=== PATIENT | male | born 1955 | race Two or more races ===

== ENCOUNTER 2024-12-09 12:54 | Outpatient (AMB) | payer MEDICARE, MEDICAID, SELFPAY ==
--- NOTE | 2024-12-09 13:07 | ORTHONT_ITS ---
Vital signs 12/09/24 13:08 Height 1.7 m Height Method Stated Weight 113.426 kg Weight Measurement Method Standing Scale BMI 39.2 BP 83/54 L Blood Pressure Source Automatic Cuff Blood Pressure Location Left Upper Arm Position Sitting Respiration 18 Pulse 86 Pulse Source Monitor Temp 97.7 F Temp Source Temporal Artery Scan Pulse Oximetry (%) 93 L Oxygen Delivery Method Room Air Med/Allergies Allergies & Medications Allergies No Known Allergies Allergy (Verified 12/09/24 13:08) Medication Reconciliation naproxen 500 mg tablet 500 mg PO BID PRN Pain 04/22/23 [History Confirmed 12/09/24] meloxicam 7.5 mg tablet 7.5 mg PO BID #45 tabs 11/03/23 [Rx Confirmed 12/09/24] meloxicam 7.5 mg tablet 7.5 mg PO QDAY #45 tabs 02/02/24 [Rx Confirmed 12/09/24] Exam Exam Patient is in no acute distress and is cooperative with the examination today. Breathing is nonlabored. In no respiratory distress. Bilateral extremities were evaluated and demonstrates sensation intact to light touch. Palpable pedal pulses are present. No significant edema is present. Bilateral hips were examined. The patient has no pain with log roll of the hips. Internal rotation to 30 degrees and external rotation to 30 degrees is painless. Negative FADIR. The left knee was examined. The left knee is in varus alignment. Range of motion from 0-115 degrees. Knee is stable to varus and valgus as well as AP translation with <5mm. Patient has a negative McMurrays. There is no pain with patellofemoral compression and no crepitus noted. The knee is tender to palpation medially. The right knee was also examined. The right knee is in varus alignment. Range of motion from 0-120 degrees. Knee is stable to varus and valgus as well as AP translation with <5mm. Patient has a negative McMurrays. There is no pain with patellofemoral compression and no crepitus noted. The knee is tender to palpation medially. X-rays were personally reviewed by me today. This demonstrates bilateral knee osteoarthritis. There is significant obliteration of the medial joint space. There is varus arthritis Assessment and Plan Problem List (1) Bilateral knee pain: Status: Acute Plan: Patient is a 68-year-old male with likely bilateral knee osteoarthritis with bilateral knee pain. The knee pain is excruciating but it is not a good time for surgery at this time. Recommend knee cortisone injections as patient would like to proceed with conservative treatment at this time. The risks and benefits of the procedure were reviewed with the patient and patient gave verbal consent to continue with the procedure. Procedure: performed by Dr. Davis Using sterile technique the Bilateral knees were thoroughly prepped with alcohol, and approximately 1 cc of Kenalog 40 mg/mL and 4 cc of 1% lidocaine was injected into each knee without resistance into the medial tibial femoral joint space. The patient tolerated the procedure. (2) Arthritis of both knees: Status: Acute Advanced Care Planning Discussion Advance care planning discussed with:: patient Office Procedures GNS Level of Care Nursing/Assessment Patient Status: Established Patient Nursing Assessment/Reassesment: Medication Reconciliation, Update PMH in EMR and Vital Signs Coordination of Care: Complex Care and Chronic Disease 1-5, Education Complex Pt/Fam, Consent,records obtained, informed consent, Results/Orders obtained and Staff clarify orders Special Needs: Language special needs Established Patient Charge Established Patient Point Assignment: 95 Established Patient Point Charge: EP Level 3 (80-115) Surgical Proc/IM SQ injection Major Surgical Procedure: Yes (BILATERAL KNEE INJECTION) Medication Given Medication Given Medication Given: Yes Documented Dose Given: 8 Route: Infiitration Medication Given Medication Given Medication Given: Yes Documented Dose Given: 2 Route: Infiitration Office Meds Xylocaine 10 mg/mL (1 %) injection solution Performing Provider: Sujit Davis MD Performing Location: [facility] Administered by: Sujit Davis MD on 12/09/24 13:24 Dose Route Admin Location Dispensed Lot Number Expiration Date [facility] [employer] 40 mL Infiltration 40 mL [id number] 07/29/27 23960-590-03 [facility] triamcinolone acetonide 40 mg/mL suspension for injection Performing Provider: Sujit Davis MD Performing Location: [facility] Administered by: Sujit Davis MD on 12/09/24 13:24 Dose Route Admin Location Dispensed Lot Number Expiration Date [facility] [employer] 80 mg Infiltration 2 mL [id number] 04/28/26 8659-6017-80 [employer] [place] Intake Visit Data Collection New Patient or Established: Established Patient (seen at [facility] within 3 years) Reason for Visit:: BL KNEE INJ Seen by Clinical Staff ONLY (RN/MA): No 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 PCP or OBGYN visit in last 3 months: Yes Hx Now: No Do You Feel Safe at Home: Yes Authorities Contacted: N/A Questionairres Past Medical History Past Medical History Have you ever been diagnosed with any of the following: Neurological Problems Seizures: No Cardiology Problems Congestive Heart Failure: No Respiratory Problems Chronic Obstructive Pulmonary Disease (COPD): No Smoking: No Smoking Exposure: No Stomache/Intestinal Problems Hepatitis: No Obesity: Yes Genital/Urinary Problems Renal Disease: No Musculoskeletal Problems Arthritis: Yes (bilateral knees) Gout: Yes Endocrine Problems Diabetes Mellitus Type 1: No Diabetes Mellitus Type 2: No Other Problems Shingles: No Blood Transfusions: No Anesthesia Reactions: No MRSA: No Measles: Yes Cancer: No Subjective Visit Visit for: follow up visit and knee (BILATERAL) Immunization / Flu Flu Vaccine in the Last 12 Months: No Flu Vaccine Exclusion Criteria: No Exclusion Criteria History of Present Illness Chief complaint: bilateral knee pain Patient is a 68-year-old male with over 1 year history of bilateral knee pain. He went to see his primary care provider and was told he had osteoarthritis. Patient Has tried indomethacin as well as meloxicam previously. He has had an injection which lasted 6 weeks. The right knee pain is worse than the left. Pain Pain level (0-10): 6 Pain duration: WITH MOVEMENT Pain location: inside (medial) Pain quality: sharp and aching Pain timing: night, increases with activity and stairs Associated signs & symptoms: weakness Ambulatory data Ambulatory device: cane Treatments Improvement with previous injections: Yes Improvement with PT: No Improvement with NSAIDS: no Review of Systems Review of Systems: All systems negative unless otherwise noted in HPI.
[2024-12-09 13:08] VITALS: BP 83/54; PULSE 86; RESP 18; TEMP 36.5; O2SAT 93; BMI 39.2
== END 2024-12-09 13:28 | disposition home or self-care (01) ==
PROVIDERS: PCP Family Medicine; Referring Provider Family Medicine; Supervising Provider Orthopaedic Surgery Adult Reconstructive Orthopaedic Surgery; Visit Provider Orthopaedic Surgery Adult Reconstructive Orthopaedic Surgery
DX: M25.562 Pain in left knee (principal); M25.561 Pain in right knee; M17.0 Bilateral primary osteoarthritis of knee
CPT/HCPCS: 20610; 99213; J3301; J3490; G0463

== ENCOUNTER 2025-03-16 08:07 | Outpatient (AMB) | payer MEDICARE, MEDICAID, SELFPAY ==
[2025-03-16 08:24] VITALS: BP 166/91; PULSE 67; RESP 18; TEMP 36.3; O2SAT 96; BMI 37.9
--- NOTE | 2025-03-16 08:24 | PD.ORTHCLVIS ---
Vital signs 03/16/25 08:24 Height 1.7 m Height Method Stated Weight 109.543 kg Weight Measurement Method Standing Scale BMI 37.9 BP 166/91 H Blood Pressure Source Automatic Cuff Blood Pressure Location Right Upper Arm Position Sitting Respiration 18 Pulse 67 Pulse Source Monitor Temp 97.3 F Temp Source Temporal Artery Scan Pulse Oximetry (%) 96 Oxygen Delivery Method Room Air Med/Allergies Allergies & Medications Allergies No Known Allergies Allergy (Verified 03/16/25 08:31) Medication Reconciliation naproxen 500 mg tablet 500 mg PO BID PRN Pain 04/22/23 [History Confirmed 03/16/25] meloxicam 7.5 mg tablet 7.5 mg PO BID #45 tabs 11/03/23 [Rx Confirmed 03/16/25] meloxicam 7.5 mg tablet 7.5 mg PO QDAY #45 tabs 02/02/24 [Rx Confirmed 03/16/25] Exam Exam Patient is in no acute distress and is cooperative with the examination today. Breathing is nonlabored. In no respiratory distress. Bilateral extremities were evaluated and demonstrates sensation intact to light touch. Palpable pedal pulses are present. No significant edema is present. Bilateral hips were examined. The patient has no pain with log roll of the hips. Internal rotation to 30 degrees and external rotation to 30 degrees is painless. Negative FADIR. The left knee was examined. The left knee is in varus alignment. Range of motion from 0-115 degrees. Knee is stable to varus and valgus as well as AP translation with <5mm. Patient has a negative McMurrays. There is no pain with patellofemoral compression and no crepitus noted. The knee is tender to palpation medially. The right knee was also examined. The right knee is in varus alignment. Range of motion from 0-120 degrees. Knee is stable to varus and valgus as well as AP translation with <5mm. Patient has a negative McMurrays. There is no pain with patellofemoral compression and no crepitus noted. The knee is tender to palpation medially. X-rays were personally reviewed by me today. This demonstrates bilateral knee osteoarthritis. There is significant obliteration of the medial joint space. There is varus arthritis Assessment and Plan Problem List (1) Bilateral knee pain: Status: Acute Plan: Patient is a 68-year-old male with likely bilateral knee osteoarthritis with bilateral knee pain. The knee pain is excruciating but it is not a good time for surgery at this time. Recommend knee cortisone injections as patient would like to proceed with conservative treatment at this time. The risks and benefits of the procedure were reviewed with the patient and patient gave verbal consent to continue with the procedure. Procedure: performed by Dr. Davis Using sterile technique the Bilateral knees were thoroughly prepped with alcohol, and approximately 1 cc of Kenalog 40 mg/mL and 4 cc of 1% lidocaine was injected into each knee without resistance into the medial tibial femoral joint space. The patient tolerated the procedure. (2) Arthritis of both knees: Status: Acute Advanced Care Planning Discussion Advance care planning discussed with:: patient Office Procedures GNS Level of Care Nursing/Assessment Patient Status: Established Patient Nursing Assessment/Reassesment: Medication Reconciliation, Update PMH in EMR and Vital Signs Coordination of Care: Complex Care and Chronic Disease 1-5, Education Complex Pt/Fam, Consent,records obtained, informed consent, Results/Orders obtained and Staff clarify orders Special Needs: Language special needs Established Patient Charge Established Patient Point Assignment: 95 Established Patient Point Charge: EP Level 3 (80-115) Medication Given Medication Given Medication Given: Yes Documented Dose Given: 4 Route: Infiitration Medication Given Medication Given Medication Given: Yes Documented Dose Given: 1 Route: Infiitration Office Meds Xylocaine 10 mg/mL (1 %) injection solution Performing Provider: Sujit Davis MD Performing Location: [facility] Administered by: Sujit Davis MD on 03/16/25 08:33 Dose Route Admin Location Dispensed Lot Number Expiration Date [facility] [employer] 40 mL Infiltration 40 mL [id number] 05/29/28 76543-080-55 [facility] triamcinolone acetonide 40 mg/mL suspension for injection Performing Provider: Sujit Davis MD Performing Location: [facility] Administered by: Sujit Davis MD on 03/16/25 08:33 Dose Route Admin Location Dispensed Lot Number Expiration Date 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 PCP or OBGYN visit in last 3 months: Yes Hx Now: No Do You Feel Safe at Home: Yes Authorities Contacted: N/A Questionairres Past Medical History Past Medical History Have you ever been diagnosed with any of the following: Neurological Problems Seizures: No Cardiology Problems Congestive Heart Failure: No Respiratory Problems Chronic Obstructive Pulmonary Disease (COPD): No Smoking: No Smoking Exposure: No Stomache/Intestinal Problems Hepatitis: No Obesity: Yes Genital/Urinary Problems Renal Disease: No Musculoskeletal Problems Arthritis: Yes (bilateral knees) Gout: Yes Endocrine Problems Diabetes Mellitus Type 1: No Diabetes Mellitus Type 2: No Other Problems Shingles: No Blood Transfusions: No Anesthesia Reactions: No MRSA: No Measles: Yes Cancer: No Subjective Visit Visit for: follow up visit, knee and injections Immunization / Flu Flu Vaccine in the Last 12 Months: No Flu Vaccine Exclusion Criteria: No Exclusion Criteria History of Present Illness Chief complaint: knee injections Patient is a 68-year-old male with over 1 year history of bilateral knee pain. He went to see his primary care provider and was told he had osteoarthritis. Patient Has tried indomethacin as well as meloxicam previously. He has done well with injections in the past and wants new ones today, The right knee pain is worse than the left. Pain Pain level (0-10): 8 Pain duration: all day Pain location: anterior and posterior Pain quality: sharp, dull, aching and burning Pain timing: increases with activity Associated signs & symptoms: numbness Ambulatory data Ambulatory device: cane Treatments Improvement with previous injections: Yes Improvement with PT: No Improvement with NSAIDS: no Review of Systems Review of Systems: All systems negative unless otherwise noted in HPI.
== END 2025-03-16 08:52 | disposition home or self-care (01) ==
LOC: HODSRG 08:07
PROVIDERS: PCP Family Medicine; Referring Provider Family Medicine; Supervising Provider Orthopaedic Surgery Adult Reconstructive Orthopaedic Surgery; Visit Provider Orthopaedic Surgery Adult Reconstructive Orthopaedic Surgery
DX: M25.561 Pain in right knee (principal); M25.562 Pain in left knee; M17.0 Bilateral primary osteoarthritis of knee
CPT/HCPCS: 20610; 99213; J3301; J3490; G0463

== ENCOUNTER 2025-07-11 13:34 | Outpatient (AMB) | payer MEDICARE, SELFPAY ==
--- NOTE | 2025-07-11 13:57 | PD.ORTHCLVIS ---
Vital signs 07/11/25 14:15 Height 1.7 m Height Method Stated Weight 113.937 kg Weight Measurement Method Standing Scale BMI 39.4 BP 150/83 H Blood Pressure Source Automatic Cuff Blood Pressure Location Left Upper Arm Position Sitting Respiration 18 Pulse 76 Pulse Source Monitor Temp 96.9 F Temp Source Temporal Artery Scan Pulse Oximetry (%) 94 L Oxygen Delivery Method Room Air Med/Allergies Allergies & Medications Allergies No Known Allergies Allergy (Verified 07/11/25 14:15) Medication Reconciliation naproxen 500 mg tablet 500 mg PO BID PRN Pain 04/22/23 [History Confirmed 07/11/25] meloxicam 7.5 mg tablet 7.5 mg PO QDAY #45 tabs 02/02/24 [Rx Confirmed 07/11/25] Exam Exam Patient is in no acute distress and is cooperative with the examination today. Breathing is nonlabored. In no respiratory distress. Bilateral extremities were evaluated and demonstrates sensation intact to light touch. Palpable pedal pulses are present. No significant edema is present. Bilateral hips were examined. The patient has no pain with log roll of the hips. Internal rotation to 30 degrees and external rotation to 30 degrees is painless. Negative FADIR. The left knee was examined. The left knee is in varus alignment. Range of motion from 0-115 degrees. Knee is stable to varus and valgus as well as AP translation with <5mm. Patient has a negative McMurrays. There is no pain with patellofemoral compression and no crepitus noted. The knee is tender to palpation medially. The right knee was also examined. The right knee is in varus alignment. Range of motion from 0-120 degrees. Knee is stable to varus and valgus as well as AP translation with <5mm. Patient has a negative McMurrays. There is no pain with patellofemoral compression and no crepitus noted. The knee is tender to palpation medially. X-rays were personally reviewed by me today. This demonstrates bilateral knee osteoarthritis. There is significant obliteration of the medial joint space. There is varus arthritis Assessment and Plan Problem List (1) Arthritis of both knees: Status: Acute (2) Bilateral knee pain: Status: Acute Plan: Patient is a 68-year-old male with likely bilateral knee osteoarthritis with bilateral knee pain. The knee pain is excruciating but it is not a good time for surgery at this time. Recommend knee cortisone injection as patient would like to proceed with conservative treatment at this time. The risks and benefits of the procedure were reviewed with the patient and patient gave verbal consent to continue with the procedure. Procedure: performed by Dr. Davis Using sterile technique the left knee was thoroughly prepped with alcohol, and approximately 1 cc of Depo-Medrol 80mg/mL and 4 cc of 0.2% ropivacaine was injected without resistance into the medial tibial femoral joint space. The patient tolerated the procedure. Recommend knee cortisone injection as patient would like to proceed with conservative treatment at this time. The risks and benefits of the procedure were reviewed with the patient and patient gave verbal consent to continue with the procedure. Procedure: performed by Dr. Davis Using sterile technique the Right knee was thoroughly prepped with alcohol, and approximately 1 cc of Depo-Medrol 80mg/mL and 4 cc of 0.2% ropivacaine was injected without resistance into the medial tibial femoral joint space. The patient tolerated the procedure. Advanced Care Planning Discussion Advance care planning discussed with:: patient Office Procedures GNS Level of Care Nursing/Assessment Patient Status: Established Patient Nursing Assessment/Reassesment: Medication Reconciliation, Update PMH in EMR and Vital Signs Coordination of Care: Complex Care and Chronic Disease 1-5, Education Complex Pt/Fam, Consent,records obtained, informed consent, Results/Orders obtained and Staff clarify orders Special Needs: Language special needs Established Patient Charge Established Patient Point Assignment: 95 Established Patient Point Charge: EP Level 3 (80-115) Surgical Proc/IM SQ injection Major Surgical Procedure: Yes (BILATERAL KNEE INJECTION) Medication Given Medication Given Medication Given: Yes Documented Dose Given: 1 Route: Infiitration Medication Given Medication Given Medication Given: Yes Documented Dose Given: 1 Route: Infiitration Medication Given Medication Given Medication Given: Yes Documented Dose Given: 4 Route: Infiitration Medication Given Medication Given Medication Given: Yes Documented Dose Given: 4 Route: Infiitration Office Meds methylprednisolone acetate 80 mg/mL suspension for injection Performing Provider: Sujit Davis MD Performing Location: [facility] Administered by: Sujit Davis MD on 07/11/25 14:31 Dose Route Admin Location Dispensed Lot Number Expiration Date [facility] [employer] 80 mg intra-articular 1 mL [id number] 04/28/27 [address]-9 [employer] methylprednisolone acetate 80 mg/mL suspension for injection Performing Provider: Sujit Davis MD Performing Location: [facility] Administered by: Sujit Davis MD on 07/11/25 14:31 Dose Route Admin Location Dispensed Lot Number Expiration Date [facility] [employer] 80 mg intra-articular 1 mL [id number] 04/28/27 [address]-7 [employer] ropivacaine (PF) 2 mg/mL (0.2 %) injection solution Performing Provider: Sujit aDvis MD Performing Location: [facility] Administered by: Sujit Davis MD on 07/11/25 14:31 Dose Route Admin Location Dispensed Lot Number Expiration Date [place] [employer] 20 mL Infiltration 20 mL [id number] 09/28/26 21376-417-50 [employer] ropivacaine (PF) 2 mg/mL (0.2 %) injection solution Performing Provider: Sujit Davis MD Performing Location: [facility] Administered by: Sujit Davis MD on 07/11/25 14:31 Dose Route Admin Location Dispensed Lot Number Expiration Date [facility] [employer] 20 mL Infiltration 20 mL [id number] 09/28/26 23768-542-53 [employer] [place] Intake Visit Data Collection New Patient or Established: Established Patient (seen at [facility] within 3 years) Reason for Visit:: 3MTH BL KNEE INJ FU Seen by Clinical Staff ONLY (RN/MA): No Verbal consent obtained for Telemed visit?: No 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 PCP or OBGYN visit in last 3 months: Yes Hx Now: No Do You Feel Safe at Home: Yes Authorities Contacted: N/A Questionairres Past Medical History Past Medical History Have you ever been diagnosed with any of the following: Neurological Problems Seizures: No Cardiology Problems Congestive Heart Failure: No Respiratory Problems Chronic Obstructive Pulmonary Disease (COPD): No Smoking: No Smoking Exposure: No Stomache/Intestinal Problems Hepatitis: No Obesity: Yes Genital/Urinary Problems Renal Disease: No Musculoskeletal Problems Arthritis: Yes (bilateral knees) Gout: Yes Endocrine Problems Diabetes Mellitus Type 1: No Diabetes Mellitus Type 2: No Other Problems Shingles: No Blood Transfusions: No Anesthesia Reactions: No MRSA: No Measles: Yes Cancer: No Subjective Visit Visit for: follow up visit, knee and injections Immunization / Flu Flu Vaccine in the Last 12 Months: No Flu Vaccine Exclusion Criteria: No Exclusion Criteria History of Present Illness Chief complaint: knee injections Patient is a 68-year-old male with over 1 year history of bilateral knee pain. He went to see his primary care provider and was told he had osteoarthritis. Patient Has tried indomethacin as well as meloxicam previously. He has done well with injections in the past and wants new ones today, The right knee pain is worse than the left. Pain Pain level (0-10): 8 Pain duration: all day Pain location: anterior and posterior Pain quality: sharp, dull, aching and burning Pain timing: increases with activity Associated signs & symptoms: numbness Ambulatory data Ambulatory device: cane Treatments Improvement with previous injections: Yes Improvement with PT: No Improvement with NSAIDS: no Review of Systems Review of Systems: All systems negative unless otherwise noted in HPI.
[2025-07-11 14:15] VITALS: BP 150/83; PULSE 76; RESP 18; TEMP 36.1; O2SAT 94; BMI 39.4
== END 2025-07-11 14:26 | disposition home or self-care (01) ==
PROVIDERS: PCP Family Medicine; Referring Provider Family Medicine; Supervising Provider Orthopaedic Surgery Adult Reconstructive Orthopaedic Surgery; Visit Provider Orthopaedic Surgery Adult Reconstructive Orthopaedic Surgery
DX: M17.0 Bilateral primary osteoarthritis of knee (principal); M25.561 Pain in right knee; M25.562 Pain in left knee; E66.9 Obesity, unspecified; Z68.39 Body mass index [BMI] 39.0-39.9, adult
CPT/HCPCS: 20610; 99213; J1010; J2795; G0463

== ENCOUNTER 2025-10-12 13:21 | Outpatient (AMB) | payer MEDICARE, SELFPAY ==
--- NOTE | 2025-10-12 13:31 | PD.ORTHCLVIS ---
Vital signs 10/12/25 13:32 Height 1.7 m Height Method Stated Weight 115.666 kg Weight Measurement Method Standing Scale BMI 40.0 BP 158/80 H Blood Pressure Source Automatic Cuff Blood Pressure Location Left Upper Arm Position Sitting Respiration 19 Pulse 78 Pulse Source Monitor Temp 94 F L Temp Source Temporal Artery Scan Med/Allergies Allergies & Medications Allergies No Known Allergies Allergy (Verified 10/12/25 13:36) Medication Reconciliation naproxen 500 mg tablet 500 mg PO BID PRN Pain 04/22/23 [History Confirmed 10/12/25] meloxicam 7.5 mg tablet 7.5 mg PO QDAY #45 tabs 02/02/24 [Rx Confirmed 10/12/25] Exam Exam Patient is in no acute distress and is cooperative with the examination today. Breathing is nonlabored. In no respiratory distress. Bilateral extremities were evaluated and demonstrates sensation intact to light touch. Palpable pedal pulses are present. No significant edema is present. Bilateral hips were examined. The patient has no pain with log roll of the hips. Internal rotation to 30 degrees and external rotation to 30 degrees is painless. Negative FADIR. The left knee was examined. The left knee is in varus alignment. Range of motion from 0-115 degrees. Knee is stable to varus and valgus as well as AP translation with <5mm. Patient has a negative McMurrays. There is no pain with patellofemoral compression and no crepitus noted. The knee is tender to palpation medially. The right knee was also examined. The right knee is in varus alignment. Range of motion from 0-120 degrees. Knee is stable to varus and valgus as well as AP translation with <5mm. Patient has a negative McMurrays. There is no pain with patellofemoral compression and no crepitus noted. The knee is tender to palpation medially. X-rays were personally reviewed by me today. This demonstrates bilateral knee osteoarthritis. There is significant obliteration of the medial joint space. There is varus arthritis Assessment and Plan Problem List (1) Arthritis of both knees: Status: Acute (2) Bilateral knee pain: Status: Acute Plan: Patient is a 68-year-old male with likely bilateral knee osteoarthritis with bilateral knee pain. The knee pain is excruciating but it is not a good time for surgery for him at this time. We recommend continued weight loss as his BMI is exactly 40 at this time. We will have him get medical clearance with his medical doctor as well. He would like to get surgery in December and we can plan for around that time. Recommend knee cortisone injection as patient would like to proceed with conservative treatment at this time. The risks and benefits of the procedure were reviewed with the patient and patient gave verbal consent to continue with the procedure. Procedure: performed by Dr. Davis Using sterile technique the left knee was thoroughly prepped with alcohol, and approximately 1 cc of Depo-Medrol 80mg/mL and 4 cc of 0.2% ropivacaine was injected without resistance into the medial tibial femoral joint space. The patient tolerated the procedure. Recommend knee cortisone injection as patient would like to proceed with conservative treatment at this time. The risks and benefits of the procedure were reviewed with the patient and patient gave verbal consent to continue with the procedure. Procedure: performed by Dr. Davis Using sterile technique the Right knee was thoroughly prepped with alcohol, and approximately 1 cc of Depo-Medrol 80mg/mL and 4 cc of 0.2% ropivacaine was injected without resistance into the medial tibial femoral joint space. The patient tolerated the procedure. Advanced Care Planning Discussion Advance care planning discussed with:: patient Office Procedures GNS Level of Care Nursing/Assessment Patient Status: Established Patient Nursing Assessment/Reassesment: Medication Reconciliation, Update PMH in EMR and Vital Signs Coordination of Care: Complex Care and Chronic Disease 1-5, Education Complex Pt/Fam, Consent,records obtained, informed consent, Results/Orders obtained and Staff clarify orders Special Needs: Language special needs Established Patient Charge Established Patient Point Assignment: 95 Established Patient Point Charge: EP Level 3 (80-115) Surgical Proc/IM SQ injection Minor Surgical Procedure: Yes (BILATERAL KNEE INJECTION) Medication Given Medication Given Medication Given: Yes Documented Dose Given: 2 Route: Infiitration Medication Given Medication Given Medication Given: Yes Documented Dose Given: 8 Route: Infiitration Office Meds methylprednisolone acetate 80 mg/mL suspension for injection Performing Provider: Sujit Davis MD Performing Location: [facility] Administered by: Sujit Davis MD on 10/12/25 14:57 Dose Route Admin Location Dispensed Lot Number Expiration Date Package [facility] [employer] 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 160 mg intra-articular KNEE 2 mL [id number] 06/29/27 [id number] [employer] ropivacaine (PF) 2 mg/mL (0.2 %) injection solution Performing Provider: Sujit Davis MD Performing Location: [facility] Administered by: Sujit Davis MD on 10/12/25 14:57 Dose Route Admin Location Dispensed Lot Number Expiration Date Package [employer] 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 40 mL Infiltration KNEE 40 mL [id number] 12/30/24 90955-228-83 [id number] [facility] Intake Visit Data Collection New Patient or Established: Established Patient (seen at [facility] within 3 years) Reason for Visit:: 3MTH BL KNEE INJECTION Seen by Clinical Staff ONLY (RN/MA): No 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 PCP or OBGYN visit in last 3 months: Yes Hx Now: No Do You Feel Safe at Home: Yes Authorities Contacted: N/A Questionairres Past Medical History Past Medical History Have you ever been diagnosed with any of the following: Neurological Problems Seizures: No Cardiology Problems Congestive Heart Failure: No Respiratory Problems Chronic Obstructive Pulmonary Disease (COPD): No Smoking: No Smoking Exposure: No Stomache/Intestinal Problems Hepatitis: No Obesity: Yes Genital/Urinary Problems Renal Disease: No Musculoskeletal Problems Arthritis: Yes (bilateral knees) Gout: Yes Endocrine Problems Diabetes Mellitus Type 1: No Diabetes Mellitus Type 2: No Other Problems Shingles: No Blood Transfusions: No Anesthesia Reactions: No MRSA: No Measles: Yes Cancer: No Subjective Visit Visit for: follow up visit, knee and injections Immunization / Flu Flu Vaccine in the Last 12 Months: No Flu Vaccine Exclusion Criteria: No Exclusion Criteria History of Present Illness Chief complaint: knee injections Patient is a 68-year-old male with over 1 year history of bilateral knee pain. He went to see his primary care provider and was told he had osteoarthritis. Patient Has tried indomethacin as well as meloxicam previously. He has done well with injections in the past and wants new ones today, The right knee pain is worse than the left. Pain Pain level (0-10): 8 Pain duration: all day Pain location: anterior and posterior Pain quality: sharp, dull, aching and burning Pain timing: increases with activity Associated signs & symptoms: numbness Ambulatory data Ambulatory device: cane Treatments Improvement with previous injections: Yes Improvement with PT: No Improvement with NSAIDS: no Review of Systems Review of Systems: All systems negative unless otherwise noted in HPI.
[2025-10-12 13:32] VITALS: BP 158/80; PULSE 78; RESP 19; TEMP 34.4; BMI 40.0
== END 2025-10-12 13:43 | disposition home or self-care (01) ==
PROVIDERS: PCP Family Medicine; Referring Provider Family Medicine; Supervising Provider Orthopaedic Surgery Adult Reconstructive Orthopaedic Surgery; Visit Provider Orthopaedic Surgery Adult Reconstructive Orthopaedic Surgery
DX: M17.0 Bilateral primary osteoarthritis of knee (principal); M25.561 Pain in right knee; M25.562 Pain in left knee
CPT/HCPCS: 20610; 99213; J1010; J2795; G0463